=== PATIENT | born 1985 ===

== ENCOUNTER 2019-07-12 14:14 | Outpatient (REF) | payer SELFPAY ==
[2019-07-12 22:00] LABS: Abs Immature Grans 0.02 k/cumm; Absolute Basophil Count 0.03 k/cumm; Absolute Eosinophil Count 0.15 k/cumm; Absolute Lymphocyte Count 3.05 k/cumm; Absolute Monocyte Count 0.52 k/cumm; Absolute Neutrophil Count 7.35 k/cumm; Basophils % 0.3; Eosinophils % 1.3; HCT 44.1 %; Immature Grans % 0.2; Lymphocytes % 27.4; Mean Corpuscular Hemoglobin 29.6 pg; Mean Platelet Volume 11.9 fL; Monocytes % 4.7; Neutrophils % 66.1; Platelet Count 184 x1000/uL; RBC 5.07 m/cumm; RBC Distribution Width 12.7 %; White Blood Cell Count 11.12 k/cumm
[2019-07-12 22:27] LABS: C-Reactive Protein 1.23 mg/dL; Uric Acid 5.9 mg/dL
[2019-07-12 23:09] LABS: ESR 18 mm/hr
[2019-07-16 12:37] LABS: Lyme Ab w Rflx to Lyme Confirm Negative (Negative)
== END 2019-07-12 14:34 ==
LOC: NCHCN 14:14
PROVIDERS: Visit Provider Nurse Practitioner Community Health
DX: M25.532 Pain in left wrist (principal); M79.89 Other specified soft tissue disorders
CPT/HCPCS: 85652; 84550; 85025; 86140; 86618